=== PATIENT | male | born 1970 | race Caucasian/White ===

== ENCOUNTER 2021-02-28 09:49 | Emergency (ER) | payer OTHER ==
[~2021-02-28] VITALS: Ht 167.6 cm; Wt 99.8 kg
[2021-02-28 09:58] VITALS: BP 158/97
--- NOTE | 2021-02-28 17:09 | NUR ---
pt wound being soaked in warm water and betadine.
[2021-02-28] MEDS ORDERED: BACITRACIN OINT 500 UNITS/GM PKT TP ONE (17:20)
--- NOTE | 2021-02-28 17:24 | NUR ---
PT WOULD CLEANED AND IRRIGATED WITH NORMAL SALINE AND APPLIED BACITRACIN TO PT'S WOUND AND WRAPPED WITH XERO-FORM DRESSING ON RIGHT SECOND AND THIRD DISTAL DIGIT FINGERS AND PLACED IN RIGHT LONG FINGER SPLNT ON SECOND DIGIT FINGER AND WRAPED WITH 3" GUAZE WRAP. [facility] WNL BEFORE AND AFTER. ERMD NOTIFIED.
[2021-02-28] MEDS ORDERED: CEPH-588 PO (18:01)
== END 2021-02-28 19:38 | disposition home or self-care (01) ==
LOC: MED 09:49
DX: S61.212A Laceration without foreign body of right middle finger without damage to nail, initial encounter (principal); S61.214A Laceration without foreign body of right ring finger without damage to nail, initial encounter; Z79.899 Other long term (current) drug therapy; W45.8XXA Other foreign body or object entering through skin, initial encounter; Y93.89 Activity, other specified; Y92.89 Other specified places as the place of occurrence of the external cause; Y99.8 Other external cause status
CPT/HCPCS: 73130; 99283